=== PATIENT | female | born 1970 | race Caucasian/White ===

== ENCOUNTER 2018-03-14 21:41 | Emergency (ER) | payer SELFPAY ==
[2018-03-14] MEDS ORDERED: KETOROLAC 30 MG/ML INJ ONE (22:25)
--- NOTE | 2018-03-14 23:50 | ER ---
Nurse's Notes [facility] Name: Keily Batista Age: 48 yrs Sex: Female : 1970 Arrival Date: 03/14/2018 Time: 21:44 Bed 6 Private MD: Diagnosis: Superficial injury of unspecified part of head Presentation: 03/14 21:44 Presenting complaint: EMS states: Pt was rollerskating and somebody bumped into her tl2 causing her to fall back and hit the back of her head on the ground. Denies LOC. Reported dizziness after the fall, denies dizziness at this time. Reports pain in back of head that radiates to top of head. Hematoma noted on back of head, bleeding controlled. Pt AOx4. Transition of care: patient was not received from another setting of care. Mechanism of Injury: The problem was sustained at a sports field or court, resulted from impacting a hard surface, hitting floor, playing sports, roller skating. Onset of symptoms was March 14, 2018 at 21:30. Risk Assessment: Do you want to hurt yourself or someone else? Patient reports no desire to harm self or others. Initial Sepsis Screen: Does the patient meet any 2 criteria? No. Patient's initial sepsis screen is negative. Does the patient have a suspected source of infection? No. Patient's initial sepsis screen is negative. Care prior to arrival: None. 21:44 Method Of Arrival: EMS: [facility] tl2 21:44 Acuity: JOSSELINE 4 tl2 Triage Assessment: 21:47 General: Appears in no apparent distress. uncomfortable, Behavior is cooperative, tl2 appropriate for age, anxious, crying. Pain: Complains of pain in right parietal area Pain radiates to left frontal area Pain currently is 10 out of 10 on a pain scale. Quality of pain is described as pressure, sharp. Neuro: Level of Consciousness is awake, alert, obeys commands, Oriented to person, place, time, situation, Reports headache Denies blurred vision dizziness. Cardiovascular: Denies chest pain. Respiratory: Airway is patent Respiratory effort is even, unlabored, Respiratory pattern is regular, symmetrical. GI: No signs and/or symptoms were reported involving the gastrointestinal system. : No signs and/or symptoms were reported regarding the genitourinary system. Derm: Skin is pink, warm \T\ dry. Injury Description: Head injury sustained to right parietal area is closed, did not have loss of consciousness, was sustained less than 30 minutes ago. 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 - Social history:: Smoking status: Patient/guardian denies using tobacco. - Ebola Screening: : No symptoms or risks identified at this time. Screenin:50 Abuse screen: Denies threats or abuse. Nutritional screening: No deficits noted. tl2 Tuberculosis screening: No symptoms or risk factors identified. Fall Risk Fall in past 12 months (25 points). Assessment: 21:50 General: see triage assessment. tl2 23:16 Reassessment: Patient appears in no apparent distress at this time. Patient and/or tl2 family updated on plan of care and expected duration. Pain level reassessed. Patient is alert, oriented x 3, equal unlabored respirations, skin warm/dry/pink. Patient states feeling better. Vital Signs: 21:47 BP 132 / 92; Pulse 100; Resp 20; Temp 98.4; Pulse Ox 98% on R/A; Weight 90.72 kg; tl2 Height 5 ft. 2 in. (157.48 cm); Pain 10/10; 23:15 BP 128 / 97; Pulse 75; Resp 18; Pulse Ox 98% on R/A; tl2 23:52 BP 121 / 70; Pulse 71; Resp 18; Pulse Ox 97% on R/A; tl2 21:47 Body Mass Index 36.58 (90.72 kg, 157.48 cm) tl2 [place] Coma Score: 21:44 Eye Response: spontaneous(4). Verbal Response: oriented(5). Motor Response: obeys tl2 commands(6). Total: 15. 22:51 Eye Response: spontaneous(4). Verbal Response: oriented(5). Motor Response: obeys tw4 commands(6). Total: 15. ED Course: 21:44 Patient arrived in ED. tl2 21:46 Triage completed. tl2 21:47 Arm band placed on right wrist. tl2 21:50 Patient has correct armband on for positive identification. Bed in low position. Call tl2 light in reach. Side rails up X2. 21:51 Amy Kaplan, RN is Primary Nurse. tl2 22:01 Madi Collins MD is Attending Physician. tw4 22:17 Head C Spine Mpr Wo Con In Process Unspecified. EDMS 23:57 No provider procedures requiring assistance completed. Patient did not have IV access tl1 during this emergency room visit. Administered Medications: 22:22 Drug: TORadol 60 mg Route: IM; Site: right gluteus; tl1 23:58 Follow up: Response: No adverse reaction; Marked relief of symptoms; Pain is decreased tl1 Outcome: 23:49 Discharge ordered by MD. tw4 23:57 Discharged to home via wheelchair, with family. tl1 23:57 Condition: improved 23:57 Discharge instructions given to patient, family, Instructed on discharge instructions, follow up and referral plans. medication usage, Demonstrated understanding of instructions, follow-up care, medications, Prescriptions given X 1. 23:59 Patient left the ED. tl1 Signatures: Dispatcher [employer] EDNJ Jumana Lyles RN RN tl1 Amy Kaplan, RN RN tl2 Madi Collins MD MD tw4 Corrections: (The following items were deleted from the chart) 21:52 21:47 General: Appears in no apparent distress. uncomfortable, Behavior is cooperative, tl2 appropriate for age, anxious, tl2
--- NOTE | 2018-03-14 23:50 | EDPHYS ---
Physician Documentation [facility] Name: Keily Batista Age: 48 yrs Sex: Female : 1970 Arrival Date: 03/14/2018 Time: 21:44 Bed 6 Private MD: ED Physician Madi Collins HPI: 03/14 22:51 This 48 yrs old Female presents to ER via EMS with complaints of Closed Head tw4 Injury-Adult. 22:51 The patient or guardian reports crush injury, tenderness. The complaints affect the tw4 left occipital area. Context of injury: The problem was sustained at a sports field or court, resulted from a fall, while skating, impacting a hard surface, hitting floor. Onset: The symptoms/episode began/occurred just prior to arrival, today. Associated signs and symptoms: Loss of consciousness: This patient did not experience any loss of consciousness. The patient has not experienced similar symptoms in the past. 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 - Social history:: Smoking status: Patient/guardian denies using tobacco. - Ebola Screening: : No symptoms or risks identified at this time. ROS: 22:51 Constitutional: Negative for fever, chills, and weight loss, Cardiovascular: Negative tw4 for chest pain, palpitations, and edema, Respiratory: Negative for shortness of breath, cough, wheezing, and pleuritic chest pain, Abdomen/GI: Negative for abdominal pain, nausea, vomiting, diarrhea, and constipation, Back: Negative for injury and pain, MS/Extremity: Negative for injury and deformity, Skin: Negative for injury, rash, and discoloration, Neuro: Negative for headache, weakness, numbness, tingling, and seizure. Exam: 22:51 Constitutional: This is a well developed, well nourished patient who is awake, alert, tw4 and in no acute distress. 22:51 ENT: Nares patent. No nasal discharge, no septal abnormalities noted. Tympanic membranes are normal and external auditory canals are clear. Oropharynx with no redness, swelling, or masses, exudates, or evidence of obstruction, uvula midline. Mucous membranes moist. Chest/axilla: Normal chest wall appearance and motion. Nontender with no deformity. No lesions are appreciated. Cardiovascular: Regular rate and rhythm with a normal S1 and S2. No gallops, murmurs, or rubs. Normal PMI, no JVD. No pulse deficits. Respiratory: Lungs have equal breath sounds bilaterally, clear to auscultation and percussion. No rales, rhonchi or wheezes noted. No increased work of breathing, no retractions or nasal flaring. Abdomen/GI: Soft, non-tender, with normal bowel sounds. No distension or tympany. No guarding or rebound. No evidence of tenderness throughout. Back: No spinal tenderness. No costovertebral tenderness. Full range of motion. MS/ Extremity: Pulses equal, no cyanosis. Neurovascular intact. Full, normal range of motion. Neuro: Awake and alert, GCS 15, oriented to person, place, time, and situation. Cranial nerves II-XII grossly intact. Motor strength 5/5 in all extremities. Sensory grossly intact. Cerebellar exam normal. Normal gait. 22:51 Head/face: Noted is contusion, that is superficial, of the left occipital area, hematoma, that is mild, of the left occipital area. Vital Signs: 21:47 BP 132 / 92; Pulse 100; Resp 20; Temp 98.4; Pulse Ox 98% on R/A; Weight 90.72 kg; tl2 Height 5 ft. 2 in. (157.48 cm); Pain 10/10; 23:15 BP 128 / 97; Pulse 75; Resp 18; Pulse Ox 98% on R/A; tl2 23:52 BP 121 / 70; Pulse 71; Resp 18; Pulse Ox 97% on R/A; tl2 21:47 Body Mass Index 36.58 (90.72 kg, 157.48 cm) tl2 [place] Coma Score: 21:44 Eye Response: spontaneous(4). Verbal Response: oriented(5). Motor Response: obeys tl2 commands(6). Total: 15. 22:51 Eye Response: spontaneous(4). Verbal Response: oriented(5). Motor Response: obeys tw4 commands(6). Total: 15. MDM: 22:01 Patient medically screened. tw4 22:51 Differential diagnosis: Contusion of head, Hematoma on head, Concussion without LOC. tw4 Data reviewed: vital signs, nurses notes. Data interpreted: Pulse oximetry: Interpretation: normal. 23:50 Counseling: I had a detailed discussion with the patient and/or guardian regarding: the tw4 historical points, exam findings, and any diagnostic results supporting the discharge/admit diagnosis, radiology results. Medication response: Toradol markedly relieved the patient's pain. Response to treatment: and as a result, I will discharge patient. Special discussion: Based on the patient's history, exam and DX evaluation, there is no indication for emergent intervention or inpatient TX. It is understood by the patient/guardian that if the SXs persist or worsen they need to return immediately for re-evaluation. I discussed with the patient/guardian in detail that at this point there is no indication for admission to the hospital. It is understood, however, that if the symptoms persist or worsen the patient needs to return immediately for re-evaluation. ED course: CT head and C sine negative for acute changes. 03/14 22:08 Order name: Head C Spine Mpr Wo Con EDMS Administered Medications: 22:22 Drug: TORadol 60 mg Route: IM; Site: right gluteus; tl1 23:58 Follow up: Response: No adverse reaction; Marked relief of symptoms; Pain is decreased tl1 Disposition: 03/14/18 23:49 Discharged to Home. Impression: Superficial injury of unspecified part of head. - Condition is Stable. - Discharge Instructions: Contusion, [id number], Head Injury, Adult, [id number]. - Prescriptions for Ibuprofen 800 mg Oral Tablet - take 1 tablet by ORAL route every 8 hours As needed take with food; 30 tablet. - Medication Reconciliation Form, Thank You Letter, Antibiotic Education, Prescription Opioid Use form. - Follow up: Private Physician; When: Upon discharge from the Emergency Department; Reason: Further diagnostic work-up, Recheck today's complaints, Continuance of care, Re-evaluation by your physician. - Problem is new. - Symptoms have improved. Signatures: Dispatcher [employer] EDMS Jumana Lyles RN RN tl1 Amy Kaplan RN RN tl2 Madi Collins MD MD tw4 Corrections: (The following items were deleted from the chart) 22:08 21:51 Head Brain Wo Cont+CT.RAD.BRZ ordered. EDMS EDMS 22:09 22:03 C Spine Wo Con+CT.RAD.BRZ ordered. EDWA EDMS 23:59 23:49 03/14/2018 23:49 Discharged to Home. Impression: Superficial injury of tl1 unspecified part of head. Condition is Stable. Forms are Medication Reconciliation Form, Thank You Letter, Antibiotic Education, Prescription Opioid Use. Follow up: Private Physician; When: Upon discharge from the Emergency Department; Reason: Further diagnostic work-up, Recheck today's complaints, Continuance of care, Re-evaluation by your physician. Problem is new. Symptoms have improved. tw4
--- NOTE | 2018-03-15 10:13 | RAD REPORT ---
EXAM DESCRIPTION: CT - Head C Spine Mpr Wo Con - 03/15/2018 5:45 am CLINICAL HISTORY: TRAUMAHead and neck injury status post fall. Head and neck pain COMPARISON: None. TECHNIQUE: Computed axial tomography of the head and cervical spine was obtained. Sagittal and coronal reconstruction was performed. Preliminary report was generated by virtual radiol ogic and reviewed prior to this dictation All CT scans are performed using dose optimization technique as appropriate and may include automated exposure control or mA/KV adjustment according to patient size. FINDINGS: A left parietal scalp hematoma is present. An underlying skull fracture is not seen. An intracranial bleed is not seen. The ventricles are normal in caliber. An extra-axial fluid collect ion is not noted.Fluid within the visualized sinuses and mastoids is not seen A cervical fracture is not visualized. No dislocation is noted. A small to moderate central disc herniation is suspected at C4-5 IMPRESSION: No acute intracranial abnormality is seen. A cervical fracture is not visualized. If the patient continues to have symptoms to suggest intracra nial /spinal cord pathology then MRI would be recommended Small to moderate central disc herniation is suspected C4-5
== END 2018-03-14 23:59 | disposition home or self-care (01) ==
LOC: ER 21:41
DX: S00.90XA Unspecified superficial injury of unspecified part of head, initial encounter (principal); I10 Essential (primary) hypertension; W19.XXXA Unspecified fall, initial encounter; Y93.51 Activity, roller skating (inline) and skateboarding; Y92.328 Other athletic field as the place of occurrence of the external cause
CPT/HCPCS: 70450; 72125; 96372; 99284